=== PATIENT | male | born 1975 | race Caucasian/White ===

== ENCOUNTER 2025-02-27 08:44 | Day surgery (SDC) | payer BC ==
--- NOTE | 2025-02-19 10:19 | ELECTROCARDIOGRAPH REPORT ---
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 JORDAN Blake Measurements Intervals [place] Rate: 67 P: 23 ID: [id number] QRS: 21 QRSD: 95 T: 17 QT: 403 QTc: 426 Interpretive Statements Sinus rhythm ST elev, probable normal early repol pattern Electronically Signed On 02-19-2025 19:20:[address] JORDAN Blake Please click the below link to view image of tracing.
[2025-02-19 10:38] LABS: MEAN PLATELET VOLUME 7.7 FL (7.4-10.4); PRE OP HEMATOCRIT 46.7 % (42.0-52.0); PRE OP HEMOGLOBIN 16.5 g/dL (14.0-17.9); PRE OP PLATELET COUNT 258 X10'3 (140-440); PRE OP WHITE BLOOD COUNT 5.0 10'3 (4.8-10.8); RED CELL DISTRIBUTION WIDTH 12.9 % (11.5-14.5)
[2025-02-19 10:49] LABS: CREATININE 0.86 MG/DL (0.60-1.10); PRE OP ALT 23 U/L (30-65); PRE OP AST 18 U/L (10-37); PRE OP BILIRUB, TOTAL 0.9 MG/DL (0.0-1.0); PRE OP GLUCOSE 91 MG/DL (70-104); PRE OP POTASSIUM 4.2 MMOL/L (3.4-5.1); PRE OP SODIUM 134 MMOL/L (135-145); eGFR > 90 ML/MIN
[2025-02-19 10:50] LABS: PRE OP ANION GAP 5 (8-16); TOTAL CARBON DIOXIDE 29.1 MMOL/L (24-32)
[2025-02-27] VITALS (10 sets, daily range): BP systolic 126–165; BP diastolic 73–99; PULSE 70–96; RESP 12–18; TEMP 97.4; O2SAT 94–100
[~2025-02-27] VITALS: Ht 180.3 cm; Wt 102.1 kg
[2025-02-27] MEDS: ceFAZolin 2gm/dext,iso 50mL 50 ML IV ONE (05:30)
[~2025-02-27 08:44] MED LIST: CHOL200012 PO; FINA5TAB11 PO; HYDROmorphone/PF 0.2 MG/ML SYRINGE IV PRN; enalaprilat 1.25mg/ml 2ml vial IV PRN; fentaNYL/PF 50MCG/1 ML 2ML syringe IV PRN; labetalol 20mg/4ml (5mg/ml) syringe IV PRN; morphine 4 MG/ML inj SYRINge IV PRN; ondansetron/PF 4mg/2ml inj IV PRN; ringers solution, lacted 1,000 ML IV SCH
[2025-02-27] MEDS ORDERED: neostigmine in sterile water inj 5 MG/5 ML syringe IJ ONE (08:45)
[2025-02-27] MEDS ORDERED: glycopyrrolate 0.2mg/ml inj IV ONE (08:45)
[2025-02-27] MEDS: ringers solution, lacted 1,000 ML IV SCH (09:35)
[2025-02-27] MEDS ORDERED: midazolam 1 mg/ML 2ml injection ONE (10:05)
[2025-02-27] MEDS ORDERED: fentaNYL /PF 50mcg/ml 5ml ampule ONE (10:05)
[2025-02-27] MEDS ORDERED: HYDROcodone/acetaminophen 5mg/325mg tablet PO PRN (10:20)
--- NOTE | 2025-02-27 10:20 | HISTORY AND PHYSICAL ---
History & Physical Providers to CC CC: TUNDE DURHAM MD ~ History of Present Illness Reason for Admit\Complaint: Umbilical hernia, right inguinal hernia History of Present Illness Interval history and physical exam Patient was seen in the office several months ago and confirmed to have a symptomatic right inguinal hernia. He also has an umbilical hernia. He is here today for elective repair He denies any change in his past medical history since he was seen in the office (please see previous history and physical exam for all pertinent details) He is scheduled for robotic assisted, laparoscopic mesh repair of his right inguinal hernia as well as an umbilical hernia repair Allergies: Coded Allergies: No Known Allergies (Unverified , 02/26/25) Home Medications Home Medications Active Reported Vitamin D3 (Cholecalciferol (Vitamin D3)) 50 Mcg (2000 Unit) Capsule 1 Cap PO DAILY 30 Days PROSCAR tablet (Finasteride) Unknown Strength Tablet 5 Mg PO DAILY ROS ROS Reviewed and negative Exam General: 49-year-old gentleman in no acute distress Chest: Lungs are clear to auscultation bilaterally Cardiovascular: Regular rate and rhythm without murmurs Abdomen: Soft and nondistended Reducible umbilical hernia Right side of the abdomen marked to correlate with preoperative diagnosis of right inguinal Extremities: Hernia Problems: (1) Umbilical hernia (2) Right inguinal hernia Assessment & Plan: The discs, benefits, and alternatives to an umbilical hernia repair as well as robotic assisted, laparoscopic right possible left inguinal hernia repair with mesh were discussed with the patient. Risks include, but are not limited to, bleeding, infection, injury to intra-abdominal structures, hernia recurrence and chronic postoperative pain. Patient verbalized understanding and wishes to proceed with surgery. We will do so today as scheduled TUNDE DURHAM MD Feb 27, 2025 10:20
[2025-02-27] MEDS ORDERED: LIDOcaine 1% 30ml preserv. free vial ONE (10:29)
[2025-02-27] MEDS ORDERED: BUPIVAcaine 2.5mg/ml inj 50ml vial (contains preservative) ONE (10:29)
[2025-02-27] MEDS ORDERED: LIDOcaine 2% (20mg/ml) 5ml vial ONE (10:44)
[2025-02-27] MEDS ORDERED: rocuronium 10mg/ml inj IV ONE (10:44)
[2025-02-27] MEDS ORDERED: propofol inj 20 ML IV ONE (10:44)
[2025-02-27] MEDS ORDERED: dexamethasone sod phosphate 4mg/ml inj. ONE (10:45)
[2025-02-27] MEDS ORDERED: ondansetron/PF 4mg/2ml inj ONE (10:46)
[2025-02-27] MEDS ORDERED: acetaminophen 1,000mg/100ml IV 100 ML IV ONE (11:46)
[2025-02-27] MEDS ORDERED: ePHEDrine 50MG/ML INJ. ONE (12:00)
--- NOTE | 2025-02-27 12:36 | OPERATIVE REPORT ---
Operative Report Providers to CC CC: ELIO DURHAM MD ~ Date of Procedure: Feb 27, 2025 Pre-Operative Diagnosis: Umbilical hernia, right inguinal hernia Post-Operative Diagnosis SAME as PRE-Op Procedure Performed 3 cm umbilical hernia repair with mesh Robotic assisted, laparoscopic right inguinal hernia repair with mesh Surgeon: Elio Durham MD FACS Digital [employer] Associate None Anesthesiologist: Richard Reagan Type of Anesthesia: General Findings: Moderate-sized indirect right inguinal hernia 3 cm fascial defect at the level of the umbilicus Wound class I Complications None Prosthetics\Implants used: Extra-large right Dextile mesh 1.7 in diameter coated polypropylene umbilical Estimated Blood Loss: Minimal Specimen Removed: Umbilical hernia sac excised and discarded Description of Procedure: Patient was brought to the operating room and identified by the nursing staff and the attending physician. Patient was placed supine and general anesthesia was induced. Patient's abdomen was prepped and draped in standard sterile fashion. Preoperative antibiotics were given. Supraumbilical incision was made to allow for standard Clark entry technique. During dissection, a moderate- sized hernia sac was encountered at the base of the umbilicus. This was mobilized away from the overlying skin, excised at the level of the fascia and discarded. The defect measured about 3 cm in diameter. Fascial edges were freshened and this was used for Clark port placement. Laparoscope was inserted after insufflation. Bilateral, 8.5 mm robotic trochars were placed under laparoscopic guidance following administration of local anesthetic. The da Lyssa robotic arm was docked to the patient and instruments placed intra-abdominally under laparoscopic visualization. The left hemipelvis was examined and showed no evidence of left inguinal hernia. Preperitoneal flap was created and carried down to the symphysis pubis. The retropubic space of [place] was developed and the bladder swept medially. Dissection was carried out laterally until a indirect hernia sac was identified. This was moderate in size. Hernia sac was completely mobilized and reduced. Peritoneum was completely dissected away from the cord structures The critical view of the myopectineal orifice was achieved. Dissection was carried out laterally to allow space for mesh deployment. An extra-large right Dextile mesh and suture was passed intra-abdominally. Mesh was laid in the preperitoneal space covering both indirect, direct, and potential femoral and obturator hernias. Mesh laid without wrinkles or folds. 3 tacking sutures using 0 Ethibond were used to fix the mesh at the symphysis pubis, rectus abdominis, and just anterior to the anterior superior iliac spine. The peritoneal rent was then closed with running, 2/0, absorbable locking suture. [place] were retrieved. Abdomen was deflated and secondary trochars removed. A 1.7 in diameter coated polypropylene mesh was passed through the fascial defect and secured circumferentially with transfascial 0 Ethibond sutures; knots buried beneath the fascia. Fascia at the umbilical port site was closed over the mesh with 0 Vicryl sutures. Skin incisions were closed with 4-0 Monocryl sutures in a subcuticular fashion. Sterile dressings were applied. Patient was awakened and taken to the postanesthesia care unit in stable condition. Counts repoted as correct: Yes ELIO DURHAM MD Feb 27, 2025 12:36
== END 2025-02-27 14:14 | disposition home or self-care (01) ==
LOC: OR 08:44
PROVIDERS: ATTEND Surgery
DX: K40.90 Unilateral inguinal hernia, without obstruction or gangrene, not specified as recurrent (principal); K42.9 Umbilical hernia without obstruction or gangrene; E66.9 Obesity, unspecified; Z79.899 Other long term (current) drug therapy; Z98.890 Other specified postprocedural states; Z68.31 Body mass index [BMI] 31.0-31.9, adult; Z82.49 Family history of ischemic heart disease and other diseases of the circulatory system
CPT/HCPCS: 36415; 49593; 49650; 80053; 82948; 85025; 93005; C1781; J0131; J0690; J1100; J2003; J2250; J2405; J2704; J2710; J3010; J3490; J7030; J7120; S2900; Z7506; Z7508; Z7512; A4215; A4618